=== PATIENT | female | born 1990 | race Asian ===

== ENCOUNTER 2024-01-07 11:04 | Outpatient (REF) | payer MEDICAID, SELFPAY | END 2024-01-07 11:05 | disposition home or self-care (01) | LOC: HO.HOSX 11:04 | PROVIDERS: PCP Nurse Practitioner; Visit Provider Physical Medicine & Rehabilitation | DX: S39.012A Strain of muscle, fascia and tendon of lower back, initial encounter (principal); G89.29 Other chronic pain; X58.XXXA Exposure to other specified factors, initial encounter; Y93.9 Activity, unspecified; Y92.9 Unspecified place or not applicable; Y99.9 Unspecified external cause status | CPT/HCPCS: 72100; 99202 ==

== ENCOUNTER 2024-01-07 11:04 | Outpatient (AMB) | payer MEDICAID, SELFPAY ==
--- NOTE | 2024-01-07 11:06 | A.OFFVIS_ITS ---
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, for evaluation of lower back pain that radiates to the neck. Patient states pain began about a year ago, denies known injuries. Patient reports numbness on the right hip. She feels like the pain worsenes when she tries to go up or down the stairs. Patient has tried Naproxen. She has not tried injections or PT as of yet. Denies prior surgeries to her back. Allergies No Known Allergies Allergy (Verified 01/07/24 11:07) Medication List - Last Reconciled 01/07/24 by Sowmya Menon MD naproxen 500 mg PO BID omeprazole 20 mg PO QAM HPI Comments Details: Notes from [facility] reviewed. Presented there for upper back pain 11/26/2023. Prescribed naproxen. Reportedly showed to [facility] ED 11/23/2023 for right wrist pain. Pain in lower back pain, chronic. It has been severe for past 3 weeks. Could radiate up to upper back. Does not radiate to legs or arms. Sometimes it feels numb in the buttocks area and it feels hard to get up from bed . 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 Patient was appropriately conversant and oriented. Good historian. MSK: No specific abnormalities found on inspection of the spine and all extremities. Tender on lumbar paraspinals but she also says just tenderness over the spinous processes. SI, GT, piriformis nontender. Lumbar ROM was full. Bilateral hip, knee and ankle ROM WNL. No ligamentous laxity or crepitance. No increased effusion. Straight-leg raising test negative. FABERE test negative. Strength is 5/5 in all muscle groups tested. No increased tone noted. Neurological: Neurologic examination of the upper and lower extremities was nonfocal with intact sensation, muscle stretch reflexes and without focal motor deficits . Rudolph?s negative bilaterally. Babinski was down going bilaterally. Clonus was negative. Gait is non-antalgic without loss of balance. Results Reviewed Results Reviewed: I reviewed records from the following: [facility] Assessment & Plan Assessment & Plan (1) Lumbar strain: Code(s): S39.012A - Strain of muscle, fascia and tendon of lower back, initial encounter Category: Medical Qualifiers: Encounter type: initial encounter Qualified Code(s): S39.012A - Strain of muscle, fascia and tendon of lower back, initial encounter (2) Chronic back pain: Code(s): M54.9 - Dorsalgia, unspecified; G89.29 - Other chronic pain Category: Medical Qualifiers: Back pain location: low back pain Back pain laterality: bilateral Sciatica presence: without sciatica Qualified Code(s): M54.50 - Low back pain, unspecified; G89.29 - Other chronic pain Plan Chronic intermittent nonradicular back pain. Exam points more to paraspinal muscle tightness. Referring her to physical therapy. Lumbar x-rays today. Assessment and plan discussed with patient, and patient was agreeable. All questions were answered thoroughly. Follow up 2 months or after PT. Sowmya Menon MD, SETH Board Certified, [place] [employer] and [employer] (ABPMR) Board Certified, [place] [employer] Electro[employer] (ABEM) Orders: Orders XR lumbar spine 2-3V Today M54.9 - Dorsalgia, unspecified PT Evaluation and Treatment Today G89.29 - Other chronic pain, M54.50 - Low back pain, unspecified, S39.012A - Strain of muscle, fascia and tendon of lower back, initial encounter Coding Level of Care Code New Pt Level 3 (19554) Diagnoses Strain of lumbar region, initial encounter S39.012A Encounter type: initial encounter Chronic bilateral low back pain without sciatica M54.50; G89.29 Back pain location: low back pain Back pain laterality: bilateral Sciatica presence: without sciatica
[2024-01-07 11:07] VITALS: BMI 33.1
== END 2024-01-07 11:36 | disposition home or self-care (01) ==
PROVIDERS: PCP Nurse Practitioner; Visit Provider Physical Medicine & Rehabilitation
DX: S39.012A Strain of muscle, fascia and tendon of lower back, initial encounter (principal); M54.50 Low back pain, unspecified; G89.29 Other chronic pain
CPT/HCPCS: 99203

== ENCOUNTER 2024-01-15 11:42 | Outpatient (REF) | payer MEDICAID, SELFPAY | END 2024-01-15 11:43 | disposition home or self-care (01) | LOC: HO.HOSX 11:42 | DX: Z13.89 Encounter for screening for other disorder (principal) ==

== ENCOUNTER 2024-03-03 11:12 | Outpatient (AMB) | payer MEDICAID, SELFPAY ==
--- NOTE | 2024-03-03 11:19 | MHC.OFFVIS ---
Vital Signs 03/03/24 11:20 Height 5 ft 3 in Weight 184 lb BMI 32.6 Intake Visit Reasons: OV-lower back pain follow up Intake Note: Charlie 33 yr old female presents today for a follow up visit for her lower back pain. States she has not done P.T yet. She called P.T dept and was told someone will reach out to her however no one has as per pt. States her pain is the same. Denies new injury or falls. Allergies No Known Allergies Allergy (Verified 03/03/24 11:21) Medication List - Last Reconciled 03/03/24 by Sowmya Menon MD naproxen 500 mg PO BID omeprazole 20 mg PO QAM HPI Comments Details: Notes from [facility] reviewed. Presented there for upper back pain 11/26/2023. Prescribed naproxen. Reportedly showed to [facility] ED 11/23/2023 for right wrist pain. Pain in lower back pain, chronic. It has been severe for past 3 weeks. Could radiate up to upper back. Does not radiate to legs or arms. Sometimes it feels numb in the buttocks area and it feels hard to get up from bed . Treatment done so far: NSAIDs Since last visit, she has not started PT. lumbar x-rays done and reviewed, disc spaces preserved. No official reading yet. Patient indicates more left-sided buttocks pain, causing some paresthesias in the thigh. No weakness. No falls. She mentioned that she had gone to the ER 15 days ago and was told to have heart infection? She has seen cryptographic vulnerability analyst tomorrow. 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 Patient was appropriately conversant and oriented. MSK: No specific abnormalities found on inspection of the spine and all extremities. Today she is more tender on left SI joint. Lumbar ROM was full. Bilateral hip, knee and ankle ROM WNL. No ligamentous laxity or crepitance. No increased effusion. Straight-leg raising test negative. FABERE test negative. Strength is 5/5 in all muscle groups tested. No increased tone noted. Neurological: Neurologic examination of the upper and lower extremities was nonfocal with intact sensation, muscle stretch reflexes and without focal motor deficits . Gait is non-antalgic without loss of balance. Results Reviewed Results Reviewed: Reviewed lumbar x-ray images, disc spaces preserved. Official reading pending. Assessment & Plan Assessment & Plan (1) Chronic back pain: Code(s): M54.9 - Dorsalgia, unspecified; G89.29 - Other chronic pain Category: Medical Qualifiers: Back pain location: low back pain Back pain laterality: bilateral Sciatica presence: without sciatica Qualified Code(s): M54.50 - Low back pain, unspecified; G89.29 - Other chronic pain (2) Pain of left sacroiliac joint: Code(s): M53.3 - Sacrococcygeal disorders, not elsewhere classified Category: Medical Plan Chronic back pain, today presenting more as left SI joint dysfunction. Patient needs to start physical therapy. We called Radiology for the reading of the lumbar x-rays. Assessment and plan discussed with patient, and patient was agreeable. All questions were answered thoroughly. Follow up after PT. Sowmya Menon MD, SETH Board Certified, [place] [employer] and [employer] (ABPMR) Board Certified, [place] [employer] Electro[employer]ostic [employer] (ABEM) Coding Level of Care Code Est Pt Level 3 (32560) Diagnoses Chronic bilateral low back pain without sciatica M54.50; G89.29 Back pain location: low back pain Back pain laterality: bilateral Sciatica presence: without sciatica Pain of left sacroiliac joint M53.3
[2024-03-03 11:20] VITALS: BMI 32.6
== END 2024-03-03 12:21 | disposition home or self-care (01) ==
PROVIDERS: PCP Nurse Practitioner; Visit Provider Physical Medicine & Rehabilitation
DX: M54.50 Low back pain, unspecified (principal); G89.29 Other chronic pain; M53.3 Sacrococcygeal disorders, not elsewhere classified
CPT/HCPCS: 99213

== ENCOUNTER → 2024-03-03 11:12 | Outpatient (BNVA) | payer MEDICAID, SELFPAY | PROVIDERS: PCP Nurse Practitioner; Visit Provider Physical Medicine & Rehabilitation | DX: M54.50 Low back pain, unspecified (principal); M53.3 Sacrococcygeal disorders, not elsewhere classified; G89.29 Other chronic pain | CPT/HCPCS: 99212 ==

== ENCOUNTER 2024-03-29 10:56 | Outpatient (RCR) | payer MEDICAID, SELFPAY ==
--- NOTE | 2024-03-29 13:36 | MHC.PT.EP ---
[facility] [place] Office [place] Office [place] Office [address] Guy Monteiro [address] [phone] F: [phone] F: [phone] F: [phone] F: [phone] Physical Therapy Plan of Care Date of Evaluation: 03/29/24 Date of Surgery: Diagnosis: Chronic back pain, Dorsalgia, Pain of left sacroiliac joint, Sacrococcygeal disorders (MD Dx) RS Assessment: Charlie is a pleasant 34 y.o. female who is referred to PT by Dr. Sowmya Christianson with Dx of Chronic back pain, Dorsalgia, Pain of left sacroiliac joint, Sacrococcygeal disorders. She is not testing with typical disc involvement and her radicular sxs are intermittent which may indicate sciatica originating from piriformis versus disc. She also presents with poor core activation and weakness contributing to pain with prolonged postures/positions. She also shows poor posture and poor body mechanics with squat/lift. Patient impairments include pain with intermittent L LE radicular sxs, limited lumbar AROM, weakness in core musculature with reduce stabilization, weakness in glutes and hamstrings, antalgic gait and labored transfers. Patient current functional limitations are prolonged sitting, prolonged walking, bend/squat, stair use (reciprocal), lying supine/sleeping. Patient will benefit from skilled PT to address aforementioned impairments and functional limitations to meet established goals. Frequency and Duration: The patient will be seen 2x/week for 4 weeks Short Term Goals: 2 weeks Patient demonstrates consistency and independence with HEP to self manage symptoms. Patient verbalizes understanding of centralization versus peripheralization to help reduce her familiar LBP to 3/10 on NPRS. Retirement Goals: 4 weeks Patient presents with increased bilateral hip glute med strength 4/5 to be able to use reciprocal stairs at home without difficulty. Patient presents with increased lumbar sidebending AROM 30 bilaterally to restore mobility for prolonged walking. Treatment Plan: Modalities to reduce pain, spasms and effusion. Manual therapy to restore motion and function. Therapeutic exercise to improve strength and flexibility. Neuromuscular re-education for posture and balance. Therapeutic activities to return to functional activities of daily living. Electronically signed by: Scarlet Sales PT, DPT Please sign and return to therapist. Thank you for your referral.
--- NOTE | 2024-05-11 13:43 | MHC.PT.DC ---
[facility] [place] Office [place] Office [place] Office [address] Guy Monteiro [address] [phone] F: [phone] F: [phone] F: [phone] F: [phone] Physical Therapy Discharge Report Diagnosis: Chronic back pain, Dorsalgia, Pain of left sacroiliac joint, Sacrococcygeal disorders ( Dx) RS Date of Surgery: Date of Evaluation: 03/29/24 Date of Discharge: 05/11/24 Treatments to Date: 1 Cancellations to Date: 0 No Shows to Date: 4 Discharge Status: Visit Non-compliance Discharge Summary: Charlie did not show to any FUP visits after PT initial evaluation. I am unable to determine effectiveness of PT interventions on patient condition due to this. She is therefore discharged from PT. Electronically signed by: Scarlet Sales, PT, DPT Please sign and return to therapist. Thank you for your referral.
== END 2024-05-11 13:44 | disposition home or self-care (01) ==
LOC: HO.PT 10:56
PROVIDERS: PCP Nurse Practitioner; Visit Provider Physical Medicine & Rehabilitation
DX: S39.012A Strain of muscle, fascia and tendon of lower back, initial encounter (principal)
CPT/HCPCS: 97110; 97161; 97535